=== PATIENT | male | born 1945 | race Caucasian/White ===

== ENCOUNTER 2017-09-18 09:53 | Inpatient (IN) | payer MEDICARE ==
[~2017-09-18] VITALS: Ht 175.3 cm; Wt 110.0 kg
[2017-09-18 11:06] VITALS: BP 132/85
[2017-09-18] MEDS ORDERED: ACET325C5 PO (11:30)
[2017-09-18] MEDS ORDERED: DILT240C61 PO (11:30)
[2017-09-18] MEDS ORDERED: LISI5TAB7 PO (11:30)
[2017-09-18] MEDS ORDERED: DIGO0.25 PO (11:30)
[2017-09-18] MEDS ORDERED: APIX5TAB PO (11:30)
[2017-09-18 12:46] VITALS: BP 137/82
[2017-09-18] MEDS ORDERED: PLEASE ENTER ALLERGIES MC SCH (14:00)
[2017-09-18] MEDS ORDERED: ACETAMINOPHEN 325 MG TABLET PO PRN (14:30)
[2017-09-18] MEDS ORDERED: ONDANSETRON 2MG/ML, 2ML IV PRN (14:30)
[2017-09-18] MEDS ORDERED: DIPHENHYDRAMINE 25 MG CAPSULE PO PRN (14:30)
[2017-09-18] MEDS ORDERED: SOTALOL 80MG TABLET PO SCH ×2 (14:52→15:00)
[2017-09-18 20:00] VITALS: BP 123/82
[2017-09-18] MEDS: SODIUM CHLORIDE FLUSH 3ML SYRINGE IVF SCH (21:00)
[2017-09-19 02:00] VITALS: BP 133/76
[2017-09-19 05:08] LABS: INTERNATIONAL NORMALIZED RATIO 1.12 (0.93-1.1); PROTHROMBIN TIME 11.5 Seconds (9.6-11.5)
[2017-09-19 05:15] LABS: BASOPHILS # (AUTO) 0.05 x10^3/uL (0-0.1); BASOPHILS % (AUTO) 1 % (0-1); CHLORIDE 108 mmol/L (98-107); EOSINOPHILS # (AUTO) 0.11 x10^3/uL (0-0.4); EOSINOPHILS % (AUTO) 2 % (1-7); LYMPHOCYTES % (AUTO) 34 % (22-44); MD NO; MEAN CORPUSCULAR HEMOGLOBIN 31.9 pg (27.5-34.5); MEAN CORPUSCULAR HGB CONC 34.4 g/dL (33.2-36.2); MEAN CORPUSCULAR VOLUME 92.7 fL (81-97); MEAN PLATELET VOLUME 8.5 fL (7.4-10.4); MONOCYTES # (AUTO) 0.61 x10^3/uL (0.2-0.8); MONOCYTES % (AUTO) 10 % (2-9); NEUTROPHILS # (AUTO) 3.16 x10^3/uL (1.8-6.8); NEUTROPHILS % (AUTO) 53 % (42-75); PLATELET COUNT 237 x10^3/uL (130-400); RED BLOOD COUNT 4.73 x10^6/uL (4.38-5.82); RED CELL DISTRIBUTION WIDTH 15.2 % (9.4-14.8)
[2017-09-19 05:19] LABS: ANION GAP 7 mmol/L (5-15); CALCIUM 8.3 mg/dL (8.5-10.1); CREATININE 1.22 mg/dL (0.7-1.3)
[2017-09-19] MEDS ORDERED: SOTALOL 80MG TABLET PO SCH (06:00)
[2017-09-19 06:06] VITALS: BP 121/76
[2017-09-19 08:24] VITALS: BP 131/95
[2017-09-19] MEDS: SODIUM CHLORIDE FLUSH 3ML SYRINGE IVF SCH ×2 (09:00→21:00)
[2017-09-19] MEDS: LISINOPRIL 5 MG TABLET PO SCH (09:33)
[2017-09-19] MEDS ORDERED: SODIUM CHLORIDE 0.9% 1,000 ML IV ONE (12:44)
[2017-09-19 13:00] VITALS: BP 129/78
[2017-09-19 19:33] VITALS: BP 107/73
[2017-09-20 00:13] VITALS: BP 116/80
[2017-09-20 08:25] VITALS: BP 134/84
[2017-09-20] MEDS: SODIUM CHLORIDE FLUSH 3ML SYRINGE IVF SCH ×2 (09:00→20:26)
[2017-09-20] MEDS: LISINOPRIL 5 MG TABLET PO SCH (09:12)
[2017-09-20] MEDS ORDERED: HEPARIN 1,000 UNITS/ML, 10ML ONE (13:34)
[2017-09-20] MEDS ORDERED: MIDAZOLAM 1 MG/ML, 5ML ONE (13:34)
[2017-09-20] MEDS ORDERED: VERAPAMIL 2.5 MG/ML, 2ML ONE (13:34)
[2017-09-20] MEDS ORDERED: LIDOCAINE 2%, 2ML ONE (13:34)
[2017-09-20] MEDS ORDERED: BIVALIRUDIN 250 MG ONE (13:34)
[2017-09-20] MEDS ORDERED: FENTANYL PF 100 MCG/2ML ONE (13:34)
[2017-09-20 15:30] VITALS: BP 112/77
[2017-09-20] MEDS: APIXABAN 5 MG TABLET PO SCH (16:01)
[2017-09-20 20:00] VITALS: BP 104/67
[2017-09-21 02:00] VITALS: BP 128/89
[2017-09-21 07:15] VITALS: BP 124/74
[2017-09-21] MEDS ORDERED: SPIRONOLACTONE 25 MG TABLET PO SCH (09:00)
[2017-09-21] MEDS: SODIUM CHLORIDE FLUSH 3ML SYRINGE IVF SCH (09:00)
[2017-09-21] MEDS: APIXABAN 5 MG TABLET PO SCH (09:02)
[2017-09-21] MEDS: LISINOPRIL 5 MG TABLET PO SCH (09:03)
[2017-09-21] MEDS ORDERED: SPIR25TA PO (09:24)
== END 2017-09-21 12:00 | disposition home or self-care (01) | DRG 287 ==
LOC: 5SO 10:29 → DCLOUNGE 09-21 11:37
PROVIDERS: ADMIT Internal Medicine Cardiovascular Disease; ATTEND Internal Medicine Cardiovascular Disease
PROC: 4A12XFZ Monitoring of Cardiac Rhythm, External Approach (ICD-10-PCS; principal; 2017-09-18)
PROC: 4A023N7 Measurement of Cardiac Sampling and Pressure, Left Heart, Percutaneous Approach (ICD-10-PCS; 2017-09-20)
PROC: B2111ZZ Fluoroscopy of Multiple Coronary Arteries using Low Osmolar Contrast (ICD-10-PCS; 2017-09-20)
PROC: B2151ZZ Fluoroscopy of Left Heart using Low Osmolar Contrast (ICD-10-PCS; 2017-09-20)
DX: I48.0 Paroxysmal atrial fibrillation (principal); D68.69 Other thrombophilia; I42.9 Cardiomyopathy, unspecified; E66.9 Obesity, unspecified; G47.33 Obstructive sleep apnea (adult) (pediatric); I10 Essential (primary) hypertension; Z68.35 Body mass index [BMI] 35.0-35.9, adult; Z87.891 Personal history of nicotine dependence
CPT/HCPCS: 36415; 80048; 85025; 85610; 85730; 92960; 93005; 93458; 99156; 99157; C1769; C1894; J0583; J1644; J2250; J3010; J3490; J7030; Q9967